=== PATIENT | female | born 1985 | race Caucasian/White ===

== ENCOUNTER 2022-06-12 08:37 | Outpatient (CLI) | payer BC, SELFPAY ==
[2022-06-12 10:56] LABS: Cholesterol* 194 mg/dL (90-199); HDL Cholesterol* 45 mg/dL (>=50); LDL Cholesterol Calculated 124 mg/dL (<100); Triglycerides* 123 mg/dL (40-149)
[2022-06-12 11:12] LABS: Vitamin D 25 Hydroxy* 38 ng/mL (30-80)
[2022-06-12 11:50] LABS: Vitamin B12* > 1000 pg/mL (243-894)
== END 2022-06-12 08:38 | disposition home or self-care (01) ==
PROVIDERS: PCP Family Medicine; Visit Provider Family Medicine
DX: E53.8 Deficiency of other specified B group vitamins (principal); E66.9 Obesity, unspecified; E78.5 Hyperlipidemia, unspecified; E55.9 Vitamin D deficiency, unspecified
CPT/HCPCS: 80061; 82306; 82607

== ENCOUNTER 2022-09-20 08:33 | Outpatient (CLI) | payer BC, SELFPAY ==
[2022-09-20 10:42] LABS: Albumin* 4.6 g/dL (3.3-5.0); Chloride* 105 mmol/L (96-114)
[2022-09-20 10:43] LABS: Sodium* 139 mmol/L (135-149)
[2022-09-20 10:45] LABS: Aspartate Amino Transferase* 28 U/L (12-35); Bilirubin Total* 0.8 mg/dL (0.1-1.5); Carbon Dioxide* 23 mmol/L (20-32); Creatinine* 0.6 mg/dL (0.5-1.5); Estimated Glomerular Filt Rate 118 ml/min; Total Protein* 7.6 g/dL (6.0-8.3)
[2022-09-20 10:46] LABS: Alanine Aminotransferase* 79 U/L (4-35); Alkaline Phosphatase* 114 U/L (40-150); Blood Urea Nitrogen* 14 mg/dL (5-24); Calcium* 9.2 mg/dL (8.4-10.6); Glucose* 99 mg/dL (60-115)
== END 2022-09-20 08:34 | disposition home or self-care (01) ==
PROVIDERS: PCP Family Medicine; Visit Provider Family Medicine
DX: R10.13 Epigastric pain (principal); R00.2 Palpitations
CPT/HCPCS: 80053; 84443

== ENCOUNTER 2022-09-25 07:20 | Outpatient (CLI) | payer BC, SELFPAY ==
--- NOTE | 2022-09-25 07:15 | CRLHL7_ITS ---
For Patients: As a result of the Century Cures Act, medical imaging exams and procedure reports are released immediately into your electronic medical record. You may view this report before your referring provider. If you have questions, please contact your health care provider. INDICATION: RUQ PAIN COMPARISON: none TECHNIQUE: Real time linton scale imaging and color Doppler analysis was performed of the right upper quadrant. FINDINGS: The patient`s liver is of normal size and has uniform echogenicity. There is a normal appearance of the hepatic IVC and proximal abdominal aorta. There is no evidence of ascites. The gallbladder is contracted. Echogenic stones are present within the gallbladder lumen measuring up to 5 millimeters. The gallbladder wall measures 4 mm in thickness. The common bile duct is of normal size and measures 4 mm in diameter at the level of the alejandro hepatis. The pancreas appears normal. There is no evidence of a stone or hydronephrosis within the right kidney. The right kidney measures cm in length. IMPRESSION: Contracted gallbladder with calcified stones. If the patient is truly NPO, then this would suggest chronic cholecystitis. Surgical consultation recommended. Dictated by Jose Enrique Hayes MD @ 09/25/2022 10:51:07 AM (Electronically Signed)
== END 2022-09-25 07:21 | disposition home or self-care (01) ==
LOC: US 07:22
PROVIDERS: PCP Family Medicine; Visit Provider Family Medicine
DX: R10.11 Right upper quadrant pain (principal); K80.20 Calculus of gallbladder without cholecystitis without obstruction
CPT/HCPCS: 76705

== ENCOUNTER 2022-10-09 15:09 | Outpatient (CLI) | payer BC, SELFPAY ==
[2022-10-09 18:27] LABS: H pylori Ag Stool* Negative (Negative)
== END 2022-10-09 15:10 | disposition home or self-care (01) ==
LOC: NFLDREF 15:11
PROVIDERS: PCP Family Medicine; Visit Provider Surgery
DX: R10.13 Epigastric pain (principal)
CPT/HCPCS: 87338

== ENCOUNTER 2022-12-11 08:42 | Outpatient (CLI) | payer BC, SELFPAY | END 2022-12-11 08:43 | disposition home or self-care (01) | LOC: NFLDREF 13:57 | PROVIDERS: PCP Family Medicine; Referring Provider Family Medicine; Visit Provider Family Medicine | DX: E78.5 Hyperlipidemia, unspecified (principal) | CPT/HCPCS: 80061 ==

== ENCOUNTER 2023-09-19 07:50 | Outpatient (CLI) | payer BC, SELFPAY ==
--- NOTE | 2023-09-19 08:00 | CRLHL7_ITS ---
For Patients: As a result of the Century Cures Act, medical imaging exams and procedure reports are released immediately into your electronic medical record. You may view this report before your referring provider. If you have questions, please contact your health care provider. INDICATION: Right-sided neck lump, nape of neck TECHNIQUE: CT of the neck with 77 ml Isovue 370 contrast agent. Coronal and sagittal reconstructions are included. COMPARISON: None available FINDINGS: On the topogram images, radiopaque skin marker is noted at the right suboccipital scalp/nape of neck. Conventional images demonstrate locally increased density and fullness of a superficial vessel in this region (series 3, image 7; series 4, images 84-87). No abnormal fluid collection, focal soft tissue mass, or aggressive osseous erosions identified. Major cervical vasculature demonstrates expected contrast opacification. Oral cavity, pharyngeal mucosal spaces, and laryngeal structures are unremarkable. Airway appears grossly patent. Parotid, submandibular, and thyroid glands are unremarkable. No suspicious cervical lymphadenopathy. No acute findings in the regional osseous structures. Orbits and included intracranial structures are unremarkable for technique. Paranasal sinuses and mastoid air cells are clear. Included lung apices are clear. IMPRESSION: 1. Increased density and fullness of a small vessel at the right suboccipital scalp/nape of neck, most suggestive of superficial thrombophlebitis. 2. No focal neck mass, abnormal fluid collection, or suspicious cervical lymphadenopathy. Please note that all CT scans at this facility use dose modulation, iterative reconstruction, and/or weight-based dosing when appropriate to reduce radiation dose to as low as reasonably achievable. Dictated by Brinda Higuera MD @ 09/19/2023 11:22:11 AM (Electronically Signed)
== END 2023-09-19 07:51 | disposition home or self-care (01) ==
LOC: CT 07:51
PROVIDERS: PCP Family Medicine; Visit Provider Family Medicine
DX: R22.0 Localized swelling, mass and lump, head (principal); R22.1 Localized swelling, mass and lump, neck
CPT/HCPCS: 70491; Q9967

== ENCOUNTER 2024-09-23 16:02 | Outpatient (CLI) | payer BC, SELFPAY | END 2024-09-23 16:03 | disposition home or self-care (01) | PROVIDERS: PCP Family Medicine; Visit Provider Family Medicine | DX: E78.5 Hyperlipidemia, unspecified (principal); E55.9 Vitamin D deficiency, unspecified; R10.11 Right upper quadrant pain | CPT/HCPCS: 80053; 80061; 82306 ==

== ENCOUNTER 2024-10-06 08:37 | Outpatient (CLI) | payer BC, SELFPAY ==
--- NOTE | 2024-10-06 08:45 | CRLHL7_ITS ---
For Patients: As a result of the Century Cures Act, medical imaging exams and procedure reports are released immediately into your electronic medical record. You may view this report before your referring provider. If you have questions, please contact your health care provider. INDICATION: Right upper quadrant pain. Chronic cholecystitis. TECHNIQUE: Conventional two-dimensional grayscale ultrasound of the right upper quadrant. COMPARISON: Right upper quadrant ultrasound of 09/25/2022 FINDINGS: Multiple stones are again demonstrated in the gallbladder. No gallbladder wall thickening or pericholecystic fluid is demonstrated. The patient is reportedly not tender over the gallbladder. No biliary ductal dilation is evident. The common bile duct measures 4 mm. The liver is normal in size, shape and echogenicity. The pancreas is within normal limits. The right kidney is unremarkable. The visualized portion of the abdominal aorta and inferior vena cava are negative. IMPRESSION: Cholelithiasis Dictated by Gonzalez Glez MD @ 10/06/2024 1:07:23 PM (Electronically Signed)
== END 2024-10-06 08:38 | disposition home or self-care (01) ==
LOC: US 08:38
PROVIDERS: PCP Family Medicine; Visit Provider Family Medicine
DX: R10.11 Right upper quadrant pain (principal); K80.10 Calculus of gallbladder with chronic cholecystitis without obstruction
CPT/HCPCS: 76705

== ENCOUNTER 2024-11-04 11:34 | Outpatient (CLI) | payer BC, SELFPAY | END 2024-11-04 11:35 | disposition home or self-care (01) | LOC: MAMMO 11:35 | PROVIDERS: PCP Family Medicine; Visit Provider Obstetrics & Gynecology | DX: Z12.31 Encounter for screening mammogram for malignant neoplasm of breast (principal); R92.333 Mammographic heterogeneous density, bilateral breasts | CPT/HCPCS: 77063; 77067 ==